=== PATIENT | female | born 1995 | race Two or more races ===

== ENCOUNTER → 2023-09-03 09:30 | Outpatient (CLI) | payer OTHER | END | disposition home or self-care (01) | LOC: PRENATAL 09:30 | PROVIDERS: ATTEND Obstetrics & Gynecology Maternal & Fetal Medicine | DX: O36.80X0 Pregnancy with inconclusive fetal viability, not applicable or unspecified (principal); O34.41 Maternal care for other abnormalities of cervix, first trimester; Z36.82 Encounter for antenatal screening for nuchal translucency; Z3A.11 11 weeks gestation of pregnancy ==

== ENCOUNTER 2023-10-27 08:07 | Outpatient (CLI) | payer OTHER | END 2023-10-27 08:08 | disposition home or self-care (01) | LOC: PRENATAL 08:07 | PROVIDERS: ATTEND Obstetrics & Gynecology Maternal & Fetal Medicine | DX: O35.3XX0 Maternal care for (suspected) damage to fetus from viral disease in mother, not applicable or unspecified (principal); O44.00 Complete placenta previa NOS or without hemorrhage, unspecified trimester; O34.40 Maternal care for other abnormalities of cervix, unspecified trimester; Z3A.19 19 weeks gestation of pregnancy ==

== ENCOUNTER 2024-01-29 09:21 | Outpatient (CLI) | payer OTHER | END 2024-01-29 09:23 | disposition home or self-care (01) | LOC: PRENATAL 09:21 | PROVIDERS: ATTEND Obstetrics & Gynecology Maternal & Fetal Medicine | DX: O26.849 Uterine size-date discrepancy, unspecified trimester (principal); O36.8199 Decreased fetal movements, unspecified trimester, other fetus; O34.40 Maternal care for other abnormalities of cervix, unspecified trimester; Z3A.33 33 weeks gestation of pregnancy ==

== ENCOUNTER 2024-03-12 14:15 | Inpatient (IN) | payer OTHER ==
[~2024-03-12] VITALS: Ht 160 cm; Wt 65.8 kg
[2024-03-12 15:49] LABS: HEMATOCRIT 33.2 % (36.0-45.00); HEMOGLOBIN 11.3 g/dL (12.0-15.00); MEAN CELL VOLUME 85.5 fL (80.00-100.00); MEAN CORPUSCULAR HEMOGLOBIN 29.1 pg (27.00-32.0); PLATELET COUNT 149 K/uL (150-450); RED BLOOD COUNT 3.88 M/uL (4.00-6.00); RED CELL DISTRIBUTION WIDTH 14.6 % (11.5-14.5)
[2024-03-12 15:50] LABS: URINE APPEARANCE Clear; URINE BILIRRUBIN Negative (NEGATIVE); URINE BLOOD Negative; URINE COLOR Yellow; URINE GLUCOSE Negative (NEGATIVE); URINE KETONE Negative (NEGATIVE); URINE LEUKOCYTE Negative; URINE NITRATE Negative; URINE PROTEIN Negative (NEGATIVE); URINE UROBILINOGEN 0.2 E.U./dl
[2024-03-12 15:51] LABS: URINE CAST 0.14 uL (0.0-1.40); URINE EPITHELIAL CELLS 3.7 uL (0.0-38.8); URINE RBC 0.2 uL (0.0-20.8); URINE WBC 4.1 uL (0.0-23.2)
[2024-03-12 16:07] LABS: INR 0.98; PARTIAL THROMBOPLASTIN TIME 29.1 SECONDS (22.0-34.0); PROTHROMBIN TIME 10.7 SECONDS (9.0-11.5)
[2024-03-15 23:10] VITALS: BP 133/84
[2024-03-15] MEDS ORDERED: RINGERS SOLUTION,LACTATED 1,000 ML IV SCH (23:30)
[2024-03-15 23:37] LABS: HEMOGLOBIN 11.4 g/dL (12.0-15.00); MEAN CELL VOLUME 86.4 fL (80.00-100.00); MEAN CORPUSCULAR HGB CONC 32.4 g/dl (32.0-36.0); PLATELET COUNT 146 K/uL (150-450); RED BLOOD COUNT 4.06 M/uL (4.00-6.00); RED CELL DISTRIBUTION WIDTH 14.3 % (11.5-14.5); URINE APPEARANCE Cloudy; URINE BILIRRUBIN Negative (NEGATIVE); URINE BLOOD Moderate; URINE COLOR Yellow; URINE GLUCOSE Negative (NEGATIVE); URINE KETONE Negative (NEGATIVE); URINE LEUKOCYTE Large; URINE NITRATE Negative; URINE PROTEIN Negative (NEGATIVE); URINE UROBILINOGEN 0.2 E.U./dl
[2024-03-15] MEDS ORDERED: PRENATAL TABLE1 EAC4 PO (23:39)
[2024-03-15 23:40] LABS: URINE BACTERIA 608.1 uL (0.0-1933); URINE EPITHELIAL CELLS 21.3 uL (0.0-38.8); URINE WBC 405.7 uL (0.0-23.2)
[2024-03-15 23:41] LABS: URINE CAST 0.29 uL (0.0-1.40); URINE RBC 0.5 uL (0.0-20.8)
[2024-03-15] MEDS ORDERED: OXYTOCIN 1,000 ML IV SCH (23:45)
[2024-03-15] MEDS ORDERED: OXYTOCIN 500 ML IV SCH (23:45)
[2024-03-15] MEDS ORDERED: OXYTOCIN 20 UNITS/500ML RL PIGGYBAG IV ONE (23:47)
[2024-03-16] VITALS (7 sets, daily range): BP systolic 107–121; BP diastolic 64–74
[2024-03-16 00:14] LABS: INR 0.95; PARTIAL THROMBOPLASTIN TIME 28.5 SECONDS (22.0-34.0); PROTHROMBIN TIME 10.4 SECONDS (9.0-11.5)
[2024-03-16 00:19] LABS: ALBUMIN 2.8 gm/dL (3.4-5.0); BILIRUBIN TOTAL 0.43 mg/dL (0.3-1.2); CREATININE SERUM 0.55 mg/dL (0.55-1.02); GFR 129.78; GLOBULINA 3.7 G/DL (2.4-3.5); POTASSIUM 4.09 mEq/L (3.5-5.1); TOTAL PROTEIN 6.5 gm/dL (6.4-8.2)
[2024-03-16] MEDS ORDERED: OXYTOCIN 10 UNITS/ML VIAL ONE (03:11)
[2024-03-16] MEDS ORDERED: ERYTHROMYCIN BASE OPHT 1GM EACH TUBE OP ONE ×2 (03:11→06:15)
[2024-03-16] MEDS ORDERED: CHLORHEXIDINE GLUCONATE 120 ML BOTTLE TOP ONE (03:12)
[2024-03-16] MEDS ORDERED: LIDOCAINE HCL 1% 10ML VIAL ONE (03:12)
[2024-03-16] MEDS ORDERED: BENZOCAINE/MENTHOL 90 ML BOTTLE TOP PRN (05:15)
[2024-03-16] MEDS ORDERED: OXYTOCIN 1,000 ML IV SCH (05:15)
[2024-03-16] MEDS ORDERED: CHLORHEXIDINE GLUCONATE 120 ML BOTTLE TP SCH (05:15)
[2024-03-16] MEDS ORDERED: ACETAMINOPHEN 500 MG GEL..CAP PO PRN (05:15)
[2024-03-16] MEDS ORDERED: LIDOCAINE HCL 1% 10ML VIAL IJ ONE (06:15)
[2024-03-16] MEDS ORDERED: PNV,CALCIUM 72/IRON/FOLIC ACID 1 TAB TABLET PO SCH (09:00)
[2024-03-16] MEDS ORDERED: DOCUSATE SODIUM 100MG CAP PO SCH (09:00)
[2024-03-16] MEDS ORDERED: ACETAMINOPHEN 160MG/5 ML BLIST.PACK PO PRN (14:00)
[2024-03-16] MEDS ORDERED: ACETAMINOPHEN 160 MG/5 ML ML PO PRN (14:30)
[2024-03-16 14:44] LABS: HEMATOCRIT 28.2 % (36.0-45.00); MEAN CELL VOLUME 86.3 fL (80.00-100.00); MEAN CORPUSCULAR HEMOGLOBIN 28.2 pg (27.00-32.0); MEAN CORPUSCULAR HGB CONC 32.7 g/dl (32.0-36.0); PLATELET COUNT 131 K/uL (150-450); RED BLOOD COUNT 3.26 M/uL (4.00-6.00); RED CELL DISTRIBUTION WIDTH 14.6 % (11.5-14.5)
[2024-03-16 14:50] LABS: HEMOGLOBIN 9.2 g/dL (12.0-15.00)
[2024-03-16] MEDS ORDERED: POLYETHYLENE GLYCOL 3350 17 GM BLIST.PACK PO SCH (17:00)
[2024-03-17 01:36] VITALS: BP 100/64
[2024-03-17 08:49] VITALS: BP 105/68
[2024-03-17 15:51] VITALS: BP 100/67
[2024-03-17 23:38] VITALS: BP 113/68
[2024-03-18 08:00] VITALS: BP 98/55
[2024-03-18] MEDS ORDERED: IRON/V.C/V.B12/FOLIC A/VIT. E 1 CAPL CAPLET PO SCH (09:00)
== END 2024-03-18 13:31 | disposition home or self-care (01) | DRG 807 ==
LOC: LDR 03-15 23:01 → OB/GYN 03-15 23:01 → LDR 03-15 23:17 → OB/GYN 03-16 05:13 → LDR 03-20 14:15
PROVIDERS: Obstetrics & Gynecology; ADMIT Obstetrics & Gynecology; ATTEND Obstetrics & Gynecology
PROC: 4A1HXCZ Monitoring of Products of Conception, Cardiac Rate, External Approach (ICD-10-PCS; 2024-03-15)
PROC: 10E0XZZ Delivery of Products of Conception, External Approach (ICD-10-PCS; principal; 2024-03-16)
PROC: 0W8NXZZ Division of Female Perineum, External Approach (ICD-10-PCS; 2024-03-16)
DX: O80 Encounter for full-term uncomplicated delivery (principal); Z37.0 Single live birth; Z3A.39 39 weeks gestation of pregnancy